=== PATIENT | female | born 1945 | race Caucasian/White ===

== ENCOUNTER 2018-05-09 21:51 | Inpatient (IN) | payer OTHER ==
[~2018-05-09] VITALS: Ht 167.6 cm; Wt 72.0 kg
[~2018-05-09 21:51] MED LIST: AMOXICILLIN500 M1 PO; AZO CRANBERRY250 MG PO; DAILY MULTIVIT1 EAC3 PO; FISH OIL 1,0001 EAC7 PO; IRON325 M1 PO; TYLENOL ARTHRI650 MG PO; ZESTRIL10 MG PO
[2018-05-10 11:58] VITALS: BP 174/76
[2018-05-10 17:35] VITALS: BP 158/72
[2018-05-10 20:11] VITALS: BP 156/71
[2018-05-11] VITALS (8 sets, daily range): BP systolic 95–166; BP diastolic 55–69
[2018-05-11 06:12] LABS: HEMATOCRIT 31.9 % (36.0-46.0); HEMOGLOBIN 10.7 G/DL (11.9-15.5); MCV 86.4 FL (83-99)
[2018-05-11 06:44] LABS: CHLORIDE 104 MEQ/L (99-109); CREATININE 0.8 MG/DL (0.6-1.3); GFR ESTIMATE (CALCULATED) > 59 mL/min/; GLUCOSE 123 mg/dL (70-99); POTASSIUM 4.3 MEQ/L (3.7-5.4); SODIUM 139 MEQ/L (136-147); UREA NITROGEN (BUN) 13 mg/dL (9-23)
[2018-05-12] VITALS: BP 149/62; BP 98/53
[2018-05-12 04:10] VITALS: BP 149/68
[2018-05-12 05:50] LABS: HEMOGLOBIN 9.3 G/DL (11.9-15.5); MCV 85.7 FL (83-99)
[2018-05-12] MEDS ORDERED: OXYCODONE HCL5 MG PO (07:25)
[2018-05-12] MEDS ORDERED: ELIQUIS2.5 MG PO (07:25)
[2018-05-12 07:54] VITALS: BP 160/71
[2018-05-12 12:15] VITALS: BP 132/60
[2018-05-12 13:09] VITALS: BP 132/60
== END 2018-05-12 13:40 | DRG 470 ==
LOC: ENRESERV 21:51 → 2SOUTH 05-10 04:22 → 3WEST 05-10 10:56 → 2SOUTH 05-10 10:56 → 3WEST 05-10 17:17
PROVIDERS: Orthopaedic Surgery
PROC: 0SRC0J9 Replacement of Right Knee Joint with Synthetic Substitute, Cemented, Open Approach (ICD-10-PCS; principal; 2018-05-10)
DX: M17.11 Unilateral primary osteoarthritis, right knee (principal); D62 Acute posthemorrhagic anemia; I10 Essential (primary) hypertension; I95.1 Orthostatic hypotension; E78.5 Hyperlipidemia, unspecified; H93.19 Tinnitus, unspecified ear; N90.4 Leukoplakia of vulva; L90.0 Lichen sclerosus et atrophicus; Z88.2 Allergy status to sulfonamides; Z82.3 Family history of stroke
CPT/HCPCS: 80048; 85014; 85018; 93005; 97530 GO; C1713; J0690; J1885; J2250; J2405; J2795; J3010; J7030; J7050